=== PATIENT | female | born 1950 | race Caucasian/White ===

== ENCOUNTER 2018-06-12 05:28 | Day surgery (SDC) | payer SELFPAY, OTHER ==
[2018-06-07 11:53] VITALS: BP 128/85; PULSE 61; RESP 18; TEMP 36.7; O2SAT 98; BMI 24.7
--- NOTE | 2018-06-07 12:23 | EKG12_ITS ---
Test Reason : PRE-OP Blood Pressure : / mmHG Vent. Rate : 069 BPM Atrial Rate : 069 BPM P-R Int : 166 ms QRS Dur : 088 ms QT Int : 418 ms P-R-T Axes : 051 026 032 degrees QTc Int : 447 ms Normal sinus rhythm Normal ECG Confirmed by DEVAN COLON, RODRIGUEZ ([id number]), video effects editor SMITH JOVEL ([id number]) on 06/09/2018 8:35:47 AM Referred By: Andrew Mercer Confirmed By:RODRIGUEZ HARTMAN MD
[2018-06-07 12:59] LABS: Absolute Lymphocyte Count 2.03 X10^3/ul (0.83-4.51); Absolute Neutrophil Count 3.9 X10^3/uL (2.0-7.7); Basophil# 0.26 X10^3/uL; Basophil% 3.8 % (0-1); Eosinophil# 0.14 X10^3/uL; Hematocrit 44.2 % (37-47); Hemoglobin 14.2 g/dl (12.0-15.0); Lymphocyte # 2.03 X10^3/ul (4.0); Lymphocyte % 29.7 % (19-41); Mean Corp Hgb Conc 32.1 g/gl (32-36); Mean Corpuscular Hgb 26.5 pg (27.0-32.0); Mean Corpuscular Volume 82.5 fL (81-99); Mean Platelet Vol. 9.6 fl (6.2-12.0); Monocyte# 0.48 X10^3/uL; Neutrophil # 3.91 X10^3/uL (2.7-7.7); Neutrophil % 57.4 % (47-70); Platelet Count 307 K/mm3 (150-450); RBC Distribution Width CV 14.4 % (11.6-14.6); RBC Distribution Width SD 43.1 fl (35.1-43.9); Red Blood Count 5.36 M/mm3 (4.2-5.4); White Blood Count 6.8 K/mm3 (4.4-11.0)
[2018-06-07 13:02] LABS: POSITIVE COUNT NO; POSITIVE DIFFERENTIAL NO; POSITIVE MORPHOLOGY NO
[2018-06-07 13:22] LABS: AST(SGOT) 15 U/L (15-37); Alanine Aminotransfer ALT/SGPT 28 U/L (13-56); Albumin, Serum 3.8 g/dL (3.2-5.0); Alkaline Phosphatase 78 U/L (45-117); Anion Gap 9 (5-15); BUN 15 mg/dL (7-18); BUN/Creat Ratio 22.6 RATIO (10-20); Calcium,Total 8.6 mg/dL (8.5-10.1); Chloride 108 mmol/L (98-107); Creatinine, Serum 0.66 mg/dL (0.55-1.02); EST Glomerular Filtration Rate 94 mL/min (>60); Est Glom Filt Rate - Afr Amer 114 mL/min (>60); Estimated Creatinine Clearance 45.78 ml/min; Globulin 3.7 g/dL (2.2-4.2); Glucose 125 mg/dL (74-106); International Normalized Ratio 0.9; Potassium 3.8 mmol/L (3.5-5.1); Protein, Total 7.5 g/dL (6.4-8.2); Prothrombin Time (Protime)PT. 12.6 SECONDS (11.7-14.9); Sodium Level 141 mmol/L (136-145)
[2018-06-07 13:23] LABS: Partial Thromboplast Time 34.2 Seconds (24.1-36.2)
--- NOTE | 2018-06-11 15:24 | PCM.HP.BLA ---
History and Physical Date of Admission: 06/12/18 Surgical History and Physical Kelsea Brown, a 68 year old female 2 0 0 0 2, presents for Vaginal Hysterectomy and AP Repair on June 12, 2018 at 7:30. -- Prolapse Symptoms -- Mirlande reports that at least two years ago if not alittle longer, she first noticed the bulge, and in the last 2-3 months it has became much worse to the point she often has to get on her hands and knees to get it to go back in place. Bladder Prolapse which began 2 years. Kelsea claims it started gradually and has been present worsened in last 2-3 months. It occurs intermittently. It is located in the vagina. Kelsea characterizes it to be non-radiating. Kelsea characterizes the quality pressure,urine retention. Severity is moderate and not improving; Additional comments are: Referred by Dr. Javier Mehta. MEDICATIONS HISTORY: Current medications prescribed by our practice are: 1. Estrace 0.01% (0.1 mg/gram) vaginal cream, one half gm per vagina qhs for 2 weeks then twice weekly ALLERGIES: Penicillins, Severe nausea & vomiting Infections - Chicken pox, Mumps and Measles Illnesses - no serious past illnesses Accidents - None Hospitalizations - Childbirth Review of Systems: GENERAL - Denies fever, or chills SKIN - Denies skin changes EYES - Denies visual changes EARS - Denies difficulty hearing NOSE - Denies nasal congestion or bleeding MOUTH - Denies sore throat or difficulty swallowing NECK - Denies pain or swelling RESPIRATORY - Denies shortness of breath or wheezing CARDIOVASCULAR - Denies palpitations or chest pain GASTROINTESTINAL - Denies nausea, vomiting, diarrhea, constipation GENITOURINARY - Denies dysuria, frequency of urination, incontinence of urine MUSCULOSKELETAL - Denies joint or muscle pain NEUROLOGICAL - Denies localized numbness or weakness PSYCHIATRIC - Denies depression or anxiety ENDOCRINE - Denies heat or cold intolerance, weight loss or gain HEMATO-IMMUNOLOGIC - Denies excesive bleeding with cuts SOCIAL HISTORY: Alcohol Use - None Smoking - Never Diet - no special diet Lifestyle - moderate stress lifestyle and Exercise - active work Seat Belt Use - most of the time Employer - [employer] Illicit Drug Use - None Sexual Activity - Spouse-Sig Other Name - [place] Spouse-Sig Other Occupation - [place] [employer] -- [employer] Children Name(s) - 2 children Control - postmenopausal FAMILY HISTORY: non-contributory MENSTRUAL HISTORY: LMP Known?- Postmenopausal PAST PREGNANCIES: Total Pregnancies - 2; Full Term Pregnancies - 2; Premature - 0; Abortions, Induced - 0; Abortions, Spontaneous - 0; Ectopics - 0; Multiple Births - 0; Living Children - 2 PHYSICAL EXAM BP- 132/82 Sitting, Right arm, regular cuff Weight- 139.68511 lbs Height- 62.00 inch BMI:25.48 CONSTITUTIONAL - NAD, well nourished, and well developed SKIN - No rash, lesions, or ulcers HEENT - Normocephalic, PERRLA, EOMI NECK - No nodes, no nuchal rigidity and thyroid normal size and texture LYMPH NODES - Palpation of lymph nodes in neck and groins within normal limits LUNGS - CTA x2 without wheezes, crackles or rales CARDIAC - Regular rate and rhythm without rubs, murmurs, or gallops ABDOMEN - Without hepatosplenomegaly, distention, masses, rebound, or guarding; normal bowel sounds; no hernias EXTREMITIES - No edema or calf tenderness NEUROLOGICAL - Cranial nerves II-XII grossly intact PSYCHIATRIC - A and O to time, place, person, mood and affect External Genitial Vagina - non-tender without lesions Urethra/Urethral Meatus - non-tender Bladder - non-tender Vagina - loss of rugae, large cystocele and large rectocele Cervix - without cervical motion tenderness and has normal size and features without evident lesions and protrudes 4 cm outside of introitus with tenaculum pull-down Uterus - 5-6 cm in size, mobile and nontender Adnexa - clear without masses or tenderness ASSESSMENT/PLAN: 1. Cystocele Midline, Rectocele, Uterovaginal Prolapse and Complete Discussed options for treatment including expectant management, pessary use or proceeding with VAG Hyst, AP Repair. Wants the surgery. Discussed RBAs, need for Intravag E2 and all questions answered.
[2018-06-12] VITALS (14 sets, daily range): BP systolic 98–148; BP diastolic 63–87; PULSE 56–77; RESP 12–20; TEMP 36.4–36.9; O2SAT 94–100; BMI 24.7; BMI 24.6
--- NOTE | 2018-06-12 07:30 | HYST_PTH ---
PATIENT: DAPHNE PENN LOC: [facility] [place] U#:[id number] AGE/SX: 68/F ROOM: RE06/12/[address]: Dr. Andrew Mercer MD : [id number] BED: DIS: 06/13/2018 SPEC #: [id number] RECD: 06/12/18 10:56 STATUS: JOLENE REJeffry #: [id number] PASTORA: 06/12/18 07:[address]: Andrew Mercer DEPT: SURGICAL PATHOLOGY RECD BY: Christopher Bui ENTERED: 06/12/18 12:56 SP TYPE: HYSTERECT OTHR DR: Dr. Ayan Mehta MD Tissues: Uterus, NOS Procedures: Decalcification bone/plaque Surgery Specimen Level II Surgery Specimen Level V HEADER OPERATION: Hysterectomy, vaginal, A & P repair PRE-OP DIAGNOSIS: Uterovaginal prolapse, cystocele, rectocele TISSUE SUBMITTED: Uterus, vaginal mucosa MICROSCOPIC DIAGNOSIS Uterus, hysterectomy: Cervix - squamous metaplasia, mild chronic inflammation and nabothian cysts. Endometrium - weakly proliferative to inactive endometrium with focal cystic change. Myometrium - fibroadenoma with calcific and degenerative change and adenomyosis. Vaginal mucosa, anterior and posterior repair: Mild hyperketosis and parakeratosis. No evidence of dysplasia. AM:leonard 06/15/18 MICROSCOPIC DESCRIPTION Slides are reviewed. GROSS DESCRIPTION Received in fixative is one container labeled with the patient's name and designated uterus, vaginal mucosa. The specimen consists of a hysterectomy specimen consisting of uterus with cervix, detached pieces of mucosal tissue and a detached ac-white nodule. The uterus with cervix weighs 41 gm and measures 10 x 4 x 3 cm. The serosal surface is ac, glistening. The ectocervical mucosa is unremarkable. The external os is pin point in contour. The endocervical canal is markedly elongated and measures up to 5.5 cm in length. The endocervical mucosa is ac, glistening and unremarkable. Sections of the cervix reveal multiple cysts filled with mucoid material. The triangular endometrial cavity measures 3 cm in length and up to 2 cm in width. The endometrium is ac, glistening without any mass lesion and measures <0.1 cm in thickness. Sections of the uterine wall reveal a ac nodular calcified nodule measuring 1 cm in greatest dimension. The uninvolved uterine wall measures up to 1.5 cm in thickness. Also present in the container are three variable sized detached pieces of mucosal tissue measuring in aggregate 6.5 x 3.5 x 0.5 cm. No mucosal lesion is identified. Instrumentation sierra are noted. Also present in the container is a detached nodule that appears to be calcified measuring 1 x 1 x 0.5 cm. User Support Specialist sections are submitted in nine cassettes as follows: 1 - anterior cervix, 2 - posterior cervix, 3 & 4 - anterior uterine wall, 5 & 6 - posterior uterine wall, 7 - uterine wall with calcified nodule, 8 - detached calcified nodule, 9 - mucosal tissue. Cassettes 7 & 8 are submitted after decalcification. / SJ:leonard 06/12/18 TC:1 CPT: 04977, [id number], [id number]
--- NOTE | 2018-06-12 07:39 | PCM.OPRPT ---
Report of Operation Date of Procedure: 06/12/18 Pre-Operative Diagnosis: Uterovaginal Prolapse Post-Operative Diagnosis: Uterovaginal Prolapse Surgery/Procedure Performed:: Vaginal Hysterectomy, Anterior Posterior Repair Description of Surgical Findings:: 8 cm uterus with normal-appearing fallopian tubes and ovaries. Cervix was protrudes 3-4 cm outside the introitus with tenaculum pulldown. Large cystocele, moderate rectocele. photo finish photographer: Pauly Ponce Type of Anesthesia:: General - Endotracheal Anesthesiologist: Dottie Agosto Specimen's removed: Uterus, vaginal mucosa Drains: Hollis to straight drain Estimated Blood Loss (mL): 100 cc Fluids Replaced: Crystalloid Description of Procedure: Surgeon: Andrew Mercer MD, FACOG Indications: This is a 68-year-old patient who is been having problems with uterovaginal prolapse. Conservative measures have not been helpful. Given this the patient desires that we proceed the above procedure. She has been counseled regarding the risk and indications of this procedure including the possibility of bleeding, infection, and injury to surrounding structures such as bowel bladder. All questions were answered. Procedure: Patient was taken to the operating room where after induction of general anesthesia she was placed in the dorsal lithotomy position and prepped and draped in the usual sterile fashion. A Hollis catheter was placed. Anterior cervix was grasped with a tenaculum and anterior cervix circumscribed with cautery on a setting of 35 W coagulation. Anterior vaginal mucosa was undermined and anterior peritoneum was entered. The posterior aspect of the cervix was circumscribed with a knife and posterior peritoneum entered. Progressive bites were taken on either side of the uterine cervix and each pedicle ligated with 0 Vicryl suture. Superior pedicles were ligated ?2 with 0 Vicryl suture and sidewall pedicles were examined and oversewn where necessary with [id number] 0 Vicryl suture to achieve hemostasis. Posterior vaginal cuff was oversewn with running locked 0 Vicryl suture. Hemostasis was noted and peritoneum was closed in a pursestring fashion incorporating superior pedicles into the stitch. Vaginal cuff was then closed front to back with interrupted [id number]-[id number] 0 Vicryl suture. Hemostasis was noted. Attention was turned toward the anterior repair portion of the procedure. Anterior vaginal mucosa was undermined and divided and then imbricated toward the midline with interrupted 0 Vicryl sutures. Vaginal mucosa was trimmed and then closed with interrupted 2-0 chromic suture. Vaginal cuff was then closed front to back with interrupted [id number] 0 Vicryl suture. Hemostasis was noted. Attention was turned toward the posterior repair portion of the procedure. Remnants of the hymenal ring were grasped with Allises and a V-shaped incision was made in the perineum. Rectovaginal mucosa was then undermined divided and then imbricated toward the midline with interrupted 0 Vicryl suture. Vaginal mucosa was trimmed and then closed with running locked 2-0 chromic suture. Remnants of the bulbocavernosus muscles were identified and brought toward the midline with a single iiaugr-pz-rlhqf 0 Vicryl suture and perineum was closed in the usual fashion with running and subcuticular, and lmnxsq-hj-nfkau 2-0 chromic suture. Hemostasis was noted. Hollis catheter was again opened and clear yellow urine was noted. Vagina was packed with iodoform tape. Patient tolerated the procedure well was taken to recovery room in satisfactory condition; sponge instrument and needle counts were all reportedly correct. Estimated blood loss for the case was 100 cc. Cefotan 2 g IV was given prior to beginning the operative procedure. There were no apparent complications of the surgery. Specimen to pathology was uterus and vaginal mucosa. Grafts/Implants Used: None - Complications None - Admit VTE Documentation VTE Present on Admission: Yes VTE Mechan Device Prophylaxis: [facility] [place] VTE Pharm Prophylaxis ordered?: Yes
--- NOTE | 2018-06-12 07:43 | OP.PCM_ITS ---
Report of Operation Date of Procedure: 06/12/18 Pre-Operative Diagnosis: Uterovaginal Prolapse Post-Operative Diagnosis: Uterovaginal Prolapse Surgery/Procedure Performed:: Vaginal Hysterectomy, Anterior Posterior Repair Description of Surgical Findings:: 8 cm uterus with normal-appearing fallopian tubes and ovaries. Cervix was protrudes 3-4 cm outside the introitus with tenaculum pulldown. Large cystocele, moderate rectocele. podiatric assistant: Pauly Ponce Type of Anesthesia:: General - Endotracheal Anesthesiologist: Dottie Agosto Specimen's removed: Uterus, vaginal mucosa Drains: Hollis to straight drain Estimated Blood Loss (mL): 100 cc Fluids Replaced: Crystalloid Description of Procedure: Surgeon: Andrew Mercer MD, FACOG Indications: This is a 68-year-old patient who is been having problems with uterovaginal prolapse. Conservative measures have not been helpful. Given this the patient desires that we proceed the above procedure. She has been counseled regarding the risk and indications of this procedure including the possibility of bleeding, infection, and injury to surrounding structures such as bowel bladder. All questions were answered. Procedure: Patient was taken to the operating room where after induction of general anesthesia she was placed in the dorsal lithotomy position and prepped and draped in the usual sterile fashion. A Hollis catheter was placed. Anterior cervix was grasped with a tenaculum and anterior cervix circumscribed with cautery on a setting of 35 W coagulation. Anterior vaginal mucosa was undermined and anterior peritoneum was entered. The posterior aspect of the cervix was circumscribed with a knife and posterior peritoneum entered. Progressive bites were taken on either side of the uterine cervix and each pedicle ligated with 0 Vicryl suture. Superior pedicles were ligated ?2 with 0 Vicryl suture and sidewall pedicles were examined and oversewn where necessary with srjxem-qa-aytqb 0 Vicryl suture to achieve hemostasis. Posterior vaginal cuff was oversewn with running locked 0 Vicryl suture. Hemostasis was noted and peritoneum was closed in a pursestring fashion incorporating superior pedicles into the stitch. Vaginal cuff was then closed front to back with interrupted dyzuld-xa-siexq 0 Vicryl suture. Hemostasis was noted. Attention was turned toward the anterior repair portion of the procedure. Anterior vaginal mucosa was undermined and divided and then imbricated toward the midline with interrupted 0 Vicryl sutures. Vaginal mucosa was trimmed and then closed with interrupted 2-0 chromic suture. Vaginal cuff was then closed front to back with interrupted [id number]-rw-vxlgg 0 Vicryl suture. Hemostasis was noted. Attention was turned toward the posterior repair portion of the procedure. Remnants of the hymenal ring were grasped with Allises and a V-shaped incision was made in the perineum. Rectovaginal mucosa was then undermined divided and then imbricated toward the midline with interrupted 0 Vicryl suture. Vaginal mucosa was trimmed and then closed with running locked 2-0 chromic suture. Remnants of the bulbocavernosus muscles were identified and brought toward the midline with a single dafwop-up-fafef 0 Vicryl suture and perineum was closed in the usual fashion with running and subcuticular, and sfffsg-ox-dgscx 2-0 chromic suture. Hemostasis was noted. Hollis catheter was again opened and clear yellow urine was noted. Vagina was packed with iodoform tape. Patient tolerated the procedure well was taken to recovery room in satisfactory condition; sponge instrument and needle counts were all reportedly correct. Estimated blood loss for the case was 100 cc. Cefotan 2 g IV was given prior to beginning the operative procedure. There were no apparent complications of the surgery. Specimen to pathology was uterus and vaginal mucosa. Grafts/Implants Used: None - Complications None - Admit VTE Documentation VTE Present on Admission: Yes VTE Mechan Device Prophylaxis: [facility] [place] VTE Pharm Prophylaxis ordered?: Yes
--- NOTE | 2018-06-12 07:44 | DCINST_ITS ---
Discharge Diet: No Restrictions Discharge Activity: Return to Normal Activity, May Not Drive - while taking narcotic pain medications., May Shower, May Take a Tub Bath May resume sexual activity in: 6-8 weeks Call your doctor if your incision/area has: Continuous Slow Oozing, Sudden Inc reased Bleeding, Increased Pain/ Swelling, Increased Redness, Foul Smelling Discharge Call your doctor if you observe: Fever of 101 or Higher, Inability to urinate, Inability to have a bowel movement, Using more than one pad per hour Allergies/Adverse Reactions: Allergies Penicillins Allergy (Verified 06/07/18 11:46) Nausea Medications to take at Discharge Multivitamin [Multiple Vitamins] 1 each PO DAILY 06/07/18 Docusate Sodium [Colace] 100 mg PO BID PRN PRN #60 cap 06/12/18 Oxycodone [Oxyir] 5 mg PO Q6H PRN PRN 7 Days #10 tab 06/12/18 The following prescriptions were given: Oxycodone [Oxyir] 5 mg PO Q6H PRN PRN 7 Days #10 tab PRN Reason: Severe Pain (-02/01) Docusate Sodium [Colace] 100 mg PO BID PRN PRN #60 cap PRN Reason: Constipation Primary Care Physician: Ayan Mehta MD [Primary Care Provider] - Test Results: Test results from this visit will be discussed in further detail at your follow- up appointment, if applicable. Please Follow Up With: Andrew Mercer MD When: 2-3 weeks
[2018-06-12] MEDS: Ondansetron 4 MG/2 ML Vial IV (12:13)
[2018-06-12] MEDS: Dextrose 5%-Lactated Ringers 1,000 ML 150 ML IV ×2 (14:22→21:30)
[2018-06-12] MEDS: Ketorolac 30 MG/ML Syringe IV ×2 (15:49→21:41)
[2018-06-12] MEDS: Enoxaparin 30 MG/0.3 ML Syringe SC (19:06)
[2018-06-13 03:53] VITALS: BP 115/60; PULSE 71; RESP 18; TEMP 36.8; O2SAT 98
[2018-06-13] MEDS: Ketorolac 30 MG/ML Syringe IV (03:55)
[2018-06-13] MEDS: 0.9% NaCl Peripheral Flush Adult/Peds IV (03:55)
[2018-06-13 07:45] LABS: Hematocrit 36.7 % (37-47); Hemoglobin 11.7 g/dl (12.0-15.0); Mean Corp Hgb Conc 31.9 g/gl (32-36); Mean Corpuscular Hgb 26.5 pg (27.0-32.0); Mean Corpuscular Volume 83.2 fL (81-99); Mean Platelet Vol. 9.1 fl (6.2-12.0); Platelet Count 257 K/mm3 (150-450); RBC Distribution Width CV 14.7 % (11.6-14.6); RBC Distribution Width SD 45.1 fl (35.1-43.9); Red Blood Count 4.41 M/mm3 (4.2-5.4); White Blood Count 12.6 K/mm3 (4.4-11.0)
[2018-06-13 07:48] LABS: Scan Indicated on CBC? Y/N NO
[2018-06-13 08:07] LABS: Creatinine, Serum 0.76 mg/dL (0.55-1.02); EST Glomerular Filtration Rate 81 mL/min (>60); Est Glom Filt Rate - Afr Amer 98 mL/min (>60); Estimated Creatinine Clearance 45.78 ml/min
[2018-06-13 08:43] VITALS: BP 119/67; PULSE 74; RESP 16; TEMP 36.7; O2SAT 98
[2018-06-13] MEDS: Ketorolac 10 MG Tablet PO (08:48)
--- NOTE | 2018-06-13 09:06 | PCM.PN.OB ---
Subjective: Patient without complaints. Tolerating diet well. Positive flatus. Minimal vaginal bleeding reported. - Physical Exam Vital Signs Temp Pulse Resp BP Pulse Ox 98.1 F 74 16 119/67 98 06/13/18 08:43 06/13/18 08:43 06/13/18 08:43 06/13/18 08:43 06/13/18 08:43 Oxygen Delivery Method Room Air Weight: 139 lb Body Mass Index (BMI) 24.6 Intake and Output for Last 24 Hours 06/11/18 06/12/18 06/13/18 23:59 23:59 23:59 Intake Total 4418 / 4418 2580 / 2580 Output Total 1475 / 1475 2775 / 2775 Balance 2943 / 2943 -195 / -195 Laboratory Tests Past 24 Hrs 06/13/18 06/13/18 07:04 07:04 WBC 12.6 H RBC 4.41 Hgb 11.7 L Hct 36.7 L MCV 83.2 MCH 26.5 L MCHC 31.9 L RDW 14.7 H RDW Differential 45.1 H Plt Count 257 MPV 9.1 Creatinine 0.76 Estim Creat Clear Calc 45.78 Est GFR (MDRD) Af Amer 98 Est GFR (MDRD) Non-Af 81 Vaginal pack out with minimal bleeding noted. Good urine output. Hemoglobin and creatinine okay. Medical Necessity - Tobacco Use Smoking Status: Never smoker Assessment/Plan Doing well postoperative day #1 status post vaginal hysterectomy and AP repair. We will released to home with routine instructions.
== END 2018-06-13 12:10 | disposition home or self-care (01) ==
LOC: SDC 05:29 → AC 05:30 → ACINP 09:52 → MS2 06-13 10:53
PROVIDERS: Family Provider Family Medicine; PCP Family Medicine; Referring Provider Obstetrics & Gynecology; Visit Provider Obstetrics & Gynecology
PROC: (CPT 58260; principal; 2018-06-12 07:10)
DX: N81.4 Uterovaginal prolapse, unspecified (principal); N88.8 Other specified noninflammatory disorders of cervix uteri; D26.1 Other benign neoplasm of corpus uteri; N80.0 Endometriosis of uterus; R23.4 Changes in skin texture
CPT/HCPCS: 00940; 57260; 58260; 80053; 82565; 85025; 85027; 85610; 85730; 86850; 86900; 88302; 88307; 88311; 93005; J7120; A4216; J2405